=== PATIENT | female | born 1995 | race Two or more races ===

== ENCOUNTER 2017-04-19 20:16 | Emergency (ER) | payer MEDICAID, OTHER ==
[~2017-04-19] VITALS: Ht 162.6 cm; Wt 60.3 kg
[2017-04-19 20:18] VITALS: BP 97/66
[2017-04-19] MEDS ORDERED: BUPIVACAINE/PF 0.5% INFIL ONE (21:00)
[2017-04-19] MEDS ORDERED: BENZOCAINE 20% SPRAY 0.5ML TP ONE (21:00)
[2017-04-19] MEDS ORDERED: BENZOCAINE 20% SPRAY 0.5ML ONE (21:07)
[2017-04-19] MEDS ORDERED: BUPIVACAINE 0.25% ONE (21:07)
[2017-04-19] MEDS ORDERED: IBUPROFEN 200 MG TABLET ONE (21:36)
[2017-04-19] MEDS ORDERED: OXYcodone/APAP 5/325MG TABLET ONE (21:36)
[2017-04-19] MEDS ORDERED: IBUPROFEN 200 MG TABLET PO ONE (22:00)
[2017-04-19] MEDS ORDERED: OXYcodone/APAP 5/325MG TABLET PO ONE (22:00)
== END 2017-04-19 22:01 | disposition home or self-care (01) ==
LOC: ED 21:35
DX: K08.89 Other specified disorders of teeth and supporting structures (principal)
CPT/HCPCS: 41800; 99284; J3490

== ENCOUNTER 2020-09-06 17:25 | Emergency (ER) | payer SELFPAY ==
[~2020-09-06] VITALS: Ht 162.6 cm; Wt 67.0 kg
[2020-09-06 17:35] VITALS: BP 136/97
--- NOTE | 2020-09-06 17:57 | NUR ---
[employer] IN[employer]CTOR: PT TO ROOM FROM [facility]
--- NOTE | 2020-09-06 18:07 | NUR ---
REQUESTING [facility] RECORDS
--- NOTE | 2020-09-06 18:55 | NUR ---
received report. pt calm and c/o pain to right side of mouth on her teeth. MD urvashi ellis pt.
[2020-09-06] MEDS ORDERED: KETOROLAC 60 MG/2 ML ONE (18:59)
[2020-09-06] MEDS ORDERED: KETOROLAC 30 MG/1 ML IM ONE (19:00)
== END 2020-09-06 19:37 | disposition home or self-care (01) ==
LOC: ED 19:25
DX: K08.89 Other specified disorders of teeth and supporting structures (principal); K02.9 Dental caries, unspecified
CPT/HCPCS: 96372; 99283; J1885